=== PATIENT | male | born 1955 | race Caucasian/White ===

== ENCOUNTER 2017-01-11 19:43 | Emergency (ER) | payer OTHER | END 2017-01-11 21:28 | disposition home or self-care (01) | LOC: D.ER 19:43 | DX: S69.92XA Unspecified injury of left wrist, hand and finger(s), initial encounter (principal); X58.XXXA Exposure to other specified factors, initial encounter; Y93.79 Activity, other specified sports and athletics; Y92.22 Religious institution as the place of occurrence of the external cause; I10 Essential (primary) hypertension ==